=== PATIENT | male | born 1980 | race Two or more races ===

== ENCOUNTER 2021-04-15 04:12 | Emergency (ER) | payer OTHER ==
[~2021-04-15] VITALS: Ht 162.6 cm; Wt 75.0 kg
--- NOTE | 2021-04-15 04:20 | PHYS DOC ---
Past History Past Medical History: Bronchitis Smoking: Cigarettes, Quit Greater Than 1 Year General Adult HPI: HPI: "..I woke up really short of breath.. this is the 5th time in past couple months.. just really short...of air...".. " My chest was really tight..." Patient is a 41 year old male prisoner from [place] who presents with above complaints and hx of marked dyspnea. Pt serving time on Sexual assault charge. Pt. does have significant tobacco use hx prior incarceration of a pack of tobacco a day for 25 years. Pt. has not smoked since he was in [facility]. Patient denies any significant previous health history other than his tobacco abuse. Does not know much about his father's history, by mother in accident 26. No recent travel. No severe ill contacts. Did get flu vaccination the past week as well as 2 Covid vaccinations. Patient is unsure if he has snoring when he sleeps. Patient states previous episodes are always in the morning when he had awakened and felt short of breath. Review of Systems: Review of Systems: Constitutional: Denies fever or chills Eyes: Denies change in visual acuity HENT: Denies nasal congestion or sore throat Respiratory: Dyspnea on awaking Cardiovascular: Complaints of chest discomfort GI: Denies abdominal pain, nausea, vomiting, bloody stools or diarrhea : Denies dysuria Musculoskeletal: Denies back pain or joint pain Integument: Denies rash Neurologic: Denies headache, focal weakness or sensory changes Endocrine: Denies polyuria or polydipsia Lymphatic: Denies swollen glands Psychiatric: Denies depression or anxiety Family History: Family History: Father early- cause unknown, Mother in accident age 26 Current Medications: Current Meds: See Nursing for home meds Allergies: Allergies: No known drug allergies Physical Exam: PE: Constitutional: Well developed, well nourished, moderate acute distress, non- toxic appearance. [] HENT: Normocephalic, atraumatic, bilateral external ears normal, oropharynx moist, no oral exudates, nose normal. [] Eyes: PERRLA, EOMI, conjunctiva normal, no discharge. [] Neck: Normal range of motion, no tenderness, supple, no stridor. [] Cardiovascular:Heart rate regular rhythm, no murmur [] Lungs & Thorax: Bilateral breath sounds to apex with few scattered wheezes auscultation [] Abdomen: Bowel sounds normal, soft, no tenderness, no masses, no pulsatile masses. [] Skin: Warm, dry, no erythema, no rash. Multiple tattoos Back: No tenderness, no CVA tenderness. [] Extremities: No tenderness, no cyanosis, no clubbing, ROM intact, no edema. [] Neurologic: Alert and oriented X 3, normal motor function, normal sensory function, no focal deficits noted. [] Psychologic: Affect anxious l, judgement normal, mood normal. [] EKG: EKG: My interpretation of EKG shows a sinus rhythm at 71 bpm. No acute morphology. [] Time EKG is 0419 hrs. Radiology/Procedures: Radiology/Procedures: [][place] [id number] IMAGING REPORT Signed PATIENT: PETTY HUSAIN ACCOUNT: [id number] : 1980 LOCATION: ER AGE: 41 SEX: M EXAM STATUS: REG ER ORD. PHYSICIAN: MILADIS PAYNE MD REASON: dyspnea PROCEDURE: PORTABLE CHEST 1V XR CHEST 1V History: Dyspnea Comparison: None. Technique: Portable AP radiograph of the chest. Findings: The lungs are adequately inflated. Question subtle left greater than right airspace opacities. No pleural effusion or pneumothorax. Osseous structures and soft tissues are unremarkable. Cardiac mediastinal silhouette and pulmonary vasculature are within normal limits. Impression: 1. Question subtle left greater than right airspace opacities. Findings may represent infection in the appropriate clinical setting. Electronically signed by: Tevin Platt MD (04/15/2021 6:21 AM) [id number] DICTATED AND SIGNED BY: TEVIN PLATT MD DATE: 04/15/2118 CC: MILADIS PAYNE MD; PCP,UNKNOWN ~MTH0 0 Heart Score: C/O Chest Pain: N/A HEART Score for Chest Pain: HEART Score for Chest Pain Response (Comments) Value History Slighlty/Non-Suspicious 0 ECG Normal 0 Age < 45 0 Risk Factors 1 or 2 Risk Factors 1 Troponin < Normal Limit 0 Total 1 Risk Factors: Risk Factors: DM, Current or recent (<one month) smoker, HTN, HLP, family history of CAD, obesity. Risk Scores: Score 0 - 3: 2.5% MACE over next 6 weeks - Discharge Home Score 4 - 6: 20.3% MACE over next 6 weeks - Admit for Clinical Observation Score 7 - 10: 72.7% MACE over next 6 weeks - Early Invasive Strategies Course & Med Decision Making: Course & Med Decision Making Pertinent Labs and Imaging studies reviewed. (See chart for details) Patient take a daily aspirin. Use MDI 2 puffs four times a day. Follow-up primary care. Return if any concerns. Consider outpatient stress testing. Consider outpatient sleep study. Impression: 1. Chest Discomfort- Bronchitis 2. Dyspnea 3. Tobacco 25 pack years 4. Viral syndrome? 5. Has had both Covid vaccinations as well as flu vaccination [] Dragon Disclaimer: Julia Disclaimer: This electronic medical record was generated, in whole or in part, using a voice recognition dictation system. MILADIS PAYNE MD Apr 15, 2021 04:20
[2021-04-15] MEDS ORDERED: IV RINGERS SOLUTION,LACTATED 1,000 ML IV SCH (04:45)
--- NOTE | 2021-04-15 04:53 | EKG ---
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
[2021-04-15] MEDS ORDERED: ALBUTEROL SULFATE 8GM INHALER. INH ONE (05:30)
[2021-04-15] MEDS ORDERED: ASPIRIN CHEWABLE 81 MG TABLET. PO ONE (05:30)
[2021-04-15 05:33] LABS: BASO % 0 % (0-3); EOS # 0.1 x10^3/uL (0.0-0.7); EOS % 1 % (0-3); HEMATOCRIT 44.2 % (39.0-53.0); HEMOGLOBIN 14.5 g/dL (13.0-17.5); LYMPH # 2.5 x10^3/uL (1.0-4.8); LYMPH % 29 % (24-48); MEAN CORPUSCULAR HEMOGLOBIN 27 pg (25-35); MEAN CORPUSCULAR HGB CONC 33 g/dL (31-37); MEAN CORPUSCULAR VOLUME 82 fL (79-100); MONO # 0.5 x10^3/uL (0.0-1.1); MONO % 5 % (0-9); NEUT # 5.4 x10^3uL (1.8-7.7); NEUT % 64 % (31-73); PLATELET COUNT 183 x10^3/uL (140-400); RED CELL DISTRIBUTION WIDTH 14.2 % (11.5-14.5); WHITE BLOOD COUNT 8.4 x10^3/uL (4.0-11.0)
[2021-04-15 05:48] LABS: BARBITURATES NEG (NEG); BENZODIAZEPINES NEG (NEG); CANNABINOIDS NEG (NEG); COCAINE NEG (NEG); METHADONE NEG (NEG); OPIATES NEG (NEG); PHENCYCLIDINE NEG (NEG)
[2021-04-15 05:48] LABS: CALCIUM 8.6 mg/dL (8.5-10.1); CREATININE 0.9 mg/dL (0.7-1.3); GFR 92.1; POTASSIUM 3.9 mmol/L (3.5-5.1)
[2021-04-15 05:53] LABS: BACTERIA,URINE FEW /HPF (0-FEW); BILIRUBIN,URINE NEG (NEG); CLARITY,URINE CLEAR; COLOR,URINE YELLOW; GLUCOSE,URINE NEG (NEG); NITRITE,URINE NEG (NEG); RBC,URINE 0 /HPF (0-2); UROBILINOGEN,URINE 0.2 mg/dL (0.2 mg/dL); WBC,URINE 0 /HPF (0-4)
[2021-04-15 05:56] LABS: AMPHETAMINE/METHAMPHETAMINE NEG (NEG)
[2021-04-15 06:01] LABS: ALBUMIN 3.9 g/dL (3.4-5.0); DIRECT BILIRUBIN 0.1 mg/dL (0.0-0.2); MAGNESIUM 1.9 mg/dL (1.8-2.4); TOTAL BILIRUBIN 0.3 mg/dL (0.2-1.0); TOTAL PROTEIN 7.2 g/dL (6.4-8.2)
[2021-04-15 06:16] VITALS: BP 119/76
--- NOTE | 2021-04-15 06:23 | RAD ---
XR CHEST 1V History: Dyspnea Comparison: None. Technique: Portable AP radiograph of the chest. Findings: The lungs are adequately inflated. Question subtle left greater than right airspace opacities. No ple ural effusion or pneumothorax. Osseous structures and soft tissues are unremarkable. Cardiac mediasti nal silhouette and pulmonary vasculature are within normal limits. Impression: 1. Question subtle left greater than right airspace opacities. Findings may represent infection in t he appropriate clinical setting. Electronically signed by: Tevin Platt MD (04/15/2021 6:21 AM) [id number]
[2021-04-15 11:33] LABS: THYROID STIM HORMONE (TSH) 1.485 uIU/mL (0.358-3.740)
== END 2021-04-15 07:12 | disposition home or self-care (01) ==
LOC: EEVIPCON 04:12 → ER 04:12
DX: J40 Bronchitis, not specified as acute or chronic (principal); R07.89 Other chest pain; Z87.891 Personal history of nicotine dependence
CPT/HCPCS: 36415; 71045; 80048; 80061; 80076; 80307; 81001; 82550; 83690; 83735; 83880; 84443; 84484; 85025; 85379; 85610; 85730; 93005; 94640; 96360; 99285; J7120; 94664